=== PATIENT | male | born 1955 | race Caucasian/White ===

== ENCOUNTER 2016-12-16 20:01 | Emergency (ER) | payer OTHER ==
[~2016-12-16] VITALS: Ht 170.2 cm; Wt 73.0 kg
[~2016-12-16 20:01] MED LIST: ACET500C5 PO; ASPI325T4 PO; CETI10CA PO; GUAI120S26 PO; INSU100V23 SC; ISM20 PO; NPH,100V10 SC
[2016-12-16 20:07] VITALS: Ht 170.2 cm; Wt 73.0 kg
[2016-12-16 22:23] LABS: URINE BLOOD (Dip) POC Negative (NEGATIVE)
[2016-12-16] MEDS ORDERED: ONDANSETRON 4 MG INJ IV STA (22:31)
[2016-12-16] MEDS ORDERED: SOD CHLORIDE 0.9% 1,000 ML IV STA (22:31)
[2016-12-16] MEDS ORDERED: morphine 4 MG/ML VIAL IV STA (22:31)
[2016-12-16 22:58] LABS: ADD SCAN DIFF NO
[2016-12-16 22:59] LABS: BASOPHIL # 0.1 10^3/ul (0.0-0.1); BASOPHILS % 0.7 % (0.0-2.0); EOSINOPHILS # 0.5 10^3/ul (0.0-0.5); EOSINOPHILS % 6.5 % (0.0-7.0); HEMATOCRIT 33.7 % (42.0-52.0); HEMOGLOBIN 11.4 g/dl (14.0-18.0); LYMPHOCYTES # 2.3 10^3/ul (0.8-2.9); LYMPHOCYTES % 29.3 % (15.0-51.0); MEAN CORPUSCULAR HEMOGLOBIN 30.7 pg (29.0-33.0); MEAN CORPUSCULAR HGB CONC 33.8 g/dl (32.0-37.0); MEAN CORPUSCULAR VOLUME 90.8 fl (82.0-101.0); MEAN PLATELET VOLUME 10.3 fl (7.4-10.4); MONOCYTES % 12.6 % (0.0-11.0); NEUTROPHIL # 3.9 10^3/ul (1.6-7.5); NEUTROPHILS % 50.6 % (39.0-77.0); PLATELET COUNT 217 10^3/UL (140-415); RED BLOOD COUNT 3.71 10^6/ul (4.70-6.10); RED CELL DISTRIBUTION WIDTH 12.7 % (11.5-14.5); WHITE BLOOD COUNT 7.7 10^3/ul (4.8-10.8)
[2016-12-16 23:08] LABS: ALANINE AMINOTRANSFERASE 43 IU/L (13-69); ALBUMIN 4.5 g/dl (3.3-4.9); ALKALINE PHOSPHATASE 85 IU/L (42-121); ANION GAP 12 (8-16); ASPARTATE AMINO TRANSFERASE 34 IU/L (15-46); BILIRUBIN,INDIRECT 0.1 mg/dl (0-1.1); BILIRUBIN,TOTAL 0.1 mg/dl (0.2-1.3); BLOOD UREA NITROGEN 22 mg/dl (7-20); CALCIUM 8.6 mg/dl (8.4-10.2); CARBON DIOXIDE 27 mmol/L (21-31); CHLORIDE 104 mmol/L (97-110); CREATININE 0.86 mg/dl (0.61-1.24); GLUCOSE 153 mg/dl (70-220); POTASSIUM 4.4 mmol/L (3.5-5.1); SODIUM 139 mmol/L (135-144)
--- NOTE | 2016-12-16 23:10 | RADRPT ---
PROCEDURE: CHEST - 1 VIEW CLINICAL INDICATION: 61-year-old male with chest/abdominal pain. TECHNIQUE: A single frontal AP upright portable view of the chest was performed. The images were reviewed on a PACS workstation. COMPARISON: Chest x-ray January 04, 2016. FINDINGS: The patient has had a prior median sternotomy. The cardiomediastinal silhouette is enlarged but wit hout significant interval change. There is a shallow inspiration. There is bibasilar subsegmental atelectasis. There is no evidence for focal consolidation. There is no evidence for congestive hea rt failure. There is no evidence for pneumothorax. IMPRESSION: 1. Status post median sternotomy. 2. Cardiomegaly. 3. Shallow inspiration. 4. Bilateral lower lung zone subsegmental atelectasis. .Brandon Washington MD, MD Date Time Electronically viewed and signed by .Brandon Washington MD, on 12/16/2016 23:10 .M/
[2016-12-16 23:22] LABS: TROPONIN-I < 0.012 ng/ml (0.00-0.12)
--- NOTE | 2016-12-16 23:37 | RADRPT ---
PROCEDURE: CT Abdomen and Pelvis without contrast. CLINICAL INDICATION: Epigastric pain. TECHNIQUE: CT scan of the abdomen and pelvis without contrast was performed on a multidetector hig h-resolution CT scanner. The patient was scanned without intravenous contrast. Coronal and sagittal reformatted images were obtained from the axial source images. Images were reviewed on a high-resol [employer] PACS workstation. The total exam CTDI equals 10.32 mGy and the total exam DLP equals 547.03 mG y-cm. One or more the following dose reduction techniques were utilized: Automated exposure control, adjus tment of the mA and / or kV according to patient's size, or use of iterative reconstruction techniqu e. COMPARISON: None. FINDINGS: Cylindrical bronchiectasis in the right middle lobe, bilateral lower lobes and lingula. Linear atel ectasis/fibrosis at lung bases. Mild dependent atelectasis in posterior lungs. Nonspecific approxi mate 5 mm nodular density in right middle lung lobe. Sternal wires. Small calcified granuloma in th e right lower lung lobe. Calcified lymph node in right hilum consistent with old granulomatous disea se. Coronary artery calcification. Calcification in thoracoabdominal aorta, right renal and bilate ral iliac arteries. No abdominal aortic aneurysm is seen. Nonspecific perinephric soft tissue stra nding bilaterally. No abnormality of the right kidney is seen. There is minimal left hydronephrosi s. No renal or ureteral stone is seen. No abnormality is seen in the liver, gallbladder, spleen, p ancreas or adrenals. No biliary dilatation is seen. No definite abnormality of the stomach is seen . There is appearance of minimal diffuse bladder wall thickening which may at least partially be due to underdistension. The prostate does not appear to be enlarged. Stool in much of the colon. There is an unremarkable appendix. No dilated small bowel loops are seen. No enlarged lymph nodes are seen in the abdomen or pelvis. No ascites is seen. No pneumoperitoneum is seen. Old fractures o f right inferior and superior pubic rami. Mild osteoarthrosis at hips. Degenerative changes at sac roiliac joints. Thoracolumbar spondylosis. Bilateral L5 spondylolysis with grade II L5 on S1 spond ylolisthesis. IMPRESSION: Cylindrical bronchiectasis in bilateral lower lungs noted above. Nonspecific 5 mm nodular density in right middle lung lobe. Atherosclerosis. Minimal left hydronephrosis. Stool in much of colon. Ple ase see above. RPTAT: HJES .Gerardo Harmon MD, Date Time Electronically viewed and signed by .Gerardo Harmon MD, on 12/16/2016 23:37 .S/
--- NOTE | 2016-12-17 00:08 | ERD ---
ER Documentation Chief Complaint Date/Time DATE: 12/17/16 TIME: 00:07 Chief Complaint abd pain x 1 day, n/v HPI This is a 61-year-old abdominal pain for 1 day. Has had mild nausea and one episode of vomiting which is nonbilious nonbloody. No fevers no chills. No other current complaints. Pain is colicky in nature moderate in intensity and nonlocalizing with no associated alleviating factors ROS All systems reviewed and are negative except as per history of present illness. Medications Home Meds Active Scripts Acetaminophen* (Tylophen*) 500 Mg Capsule, 1 CAP PO Q6H Y for PAIN AND OR ELEVATED TEMP, #20 CAP Prov:BENITO FRAZIER BASE PLY HAND 01/04/16 Cetirizine Hcl* (Zyrtec*) 10 Mg Capsule, 10 MG PO DAILY, #30 TAB.CHEW Prov:BENITO FRAZIER BASE PLY HAND 01/04/16 Iqztvnkwjda-V-Ryopyuannu Hb* (Guaifenesin* DM Syrup) 120 Ml Syrup, 10 ML PO Q4H Y for COUGH, #120 ML Prov:BENITO FRAZIER BASE PLY HAND 01/04/16 Reported Medications Aspirin* (Aspirin*) Unknown Strength Tablet, PO DAILY, TAB 01/04/16 Insulin Regular, Human* (Novolin R*) Unknown Strength Vial, SC SLIDING SCALE Q6 , VIAL 01/04/16 Nph, Human Insulin Isophane* (Novolin N*) Unknown Strength Vial, SC AC BREAKFAST , VIAL 01/04/16 Isosorbide Mononitrate* (Isosorbide Mononitrate*) Unknown Strength Tablet, PO DAILY, TAB 01/04/16 Allergies Allergies: Coded Allergies: No Known Allergy (Unverified , 01/04/16) PMhx/Soc History of Surgery: Yes (bypass x 2) Anesthesia Reaction: No Hx Neurological Disorder: No Hx Respiratory Disorders: No Hx Cardiac Disorders: Yes (HTN) Hx Psychiatric Problems: No Hx Miscellaneous Medical Probl: Yes (DM, high cholesterol) Hx Alcohol Use: No Hx Substance Use: No Hx Tobacco Use: No Smoking Status: Never smoker Physical Exam Vitals Vital Signs Date Time Temp Pulse Resp B/P Pulse Ox O2 Delivery O2 Flow Rate FiO2 12/16/16 20:07 97.3 65 18 155/69 97 Physical Exam Const: [] Head: Atraumatic Eyes: Normal Conjunctiva ENT: Normal External Ears, Nose and Mouth. Neck: Full range of motion..~ No meningismus. Resp: Clear to auscultation bilaterally Cardio: Regular rate and rhythm, no murmurs Abd: Soft, non tender, non distended. Normal bowel sounds Skin: No petechiae or rashes Back: No midline or flank tenderness Ext: No cyanosis, or edema Neur: Awake and alert Psych: Normal Mood and Affect Result Diagram: 12/16/16221912/16/162219 Results 24 hrs Laboratory Tests Test 12/16/16 22:20 12/16/16 22:26 12/16/16 22:45 White Blood Count 7.710^3/ul Red Blood Count 3.7110^6/ul Hemoglobin 11.4g/dl Hematocrit 33.7% Mean Corpuscular Volume 90.8fl Mean Corpuscular Hemoglobin 30.7pg Mean Corpuscular Hemoglobin Concent 33.8g/dl Red Cell Distribution Width 12.7% Platelet Count 52480^3/UL Mean Platelet Volume 10.3fl Neutrophils % 50.6% Lymphocytes % 29.3% Monocytes % 12.6% Eosinophils % 6.5% Basophils % 0.7% Nucleated Red Blood Cells % 0.0/100WBC Neutrophils # 3.910^3/ul Lymphocytes # 2.310^3/ul Monocytes # 1.010^3/ul Eosinophils # 0.510^3/ul Basophils # 0.110^3/ul Nucleated Red Blood Cells # 0.010^3/ul Sodium Level 139mmol/L Potassium Level 4.4mmol/L Chloride Level 104mmol/L Carbon Dioxide Level 27mmol/L Anion Gap 12 Blood Urea Nitrogen 22mg/dl Creatinine 0.86mg/dl Glucose Level 153mg/dl Calcium Level 8.6mg/dl Total Bilirubin 0.1mg/dl Direct Bilirubin 0.00mg/dl Indirect Bilirubin 0.1mg/dl Aspartate Amino Transf (AST/SGOT) 34IU/L Alanine Aminotransferase (ALT/SGPT) 43IU/L Alkaline Phosphatase 85IU/L Troponin I < 0.012ng/ml Total Protein 7.0g/dl Albumin 4.5g/dl Globulin 2.50g/dl Albumin/Globulin Ratio 1.80 Lipase 92U/L Bedside Urine pH (LAB) 5.5 Bedside Urine Protein (LAB) Negative Bedside Urine Glucose (UA) Negative Bedside Urine Ketones (LAB) Negative Bedside Urine Blood Negative Bedside Urine Nitrite (LAB) Negative Bedside Urine Leukocyte Esterase (L Negative Lactic Acid Level 0.6mmol/L Current Medications Medications (Trade) Dose Ordered Sig/Barney Route PRN Reason Start Time Stop Time Status Last Admin Dose Admin Sodium Chloride (NS) 1,000 ml @ 1,000 mls/hr Q1H STAT IV 12/16/16 22:31 12/16/16 23:30 DC 12/16/16 22:44 Morphine Sulfate (morphine) 4 mg ONCE STAT IV 12/16/16 22:31 12/16/16 22:32 DC Ondansetron HCl (Zofran Inj) 4 mg ONCE STAT IV 12/16/16 22:31 12/16/16 22:32 DC 12/16/16 22:44 Procedures/MDM Medical decision-making: General abdominal pain. Evidence of constipation. Exam is benign. Patient be discharged home with constipation medication. Follow-up in 8 hours for serial abdominal exams. Return sooner for worsening pain Departure Diagnosis: Primary Impression: Abdominal pain Abdominal location: generalized Qualified Code: R10.84 - Generalized abdominal pain Condition: Stable JAGDISH MONTES Dec 17, 2016 00:08
[2016-12-17] MEDS ORDERED: DOCU-144 PO (00:09)
[2016-12-17] MEDS ORDERED: ONDA4TAB14 PO (00:32)
== END 2016-12-17 00:39 | disposition home or self-care (01) ==
LOC: E/R 20:01
DX: R10.84 Generalized abdominal pain (principal); I10 Essential (primary) hypertension; E11.9 Type 2 diabetes mellitus without complications; R11.2 Nausea with vomiting, unspecified; Z79.4 Long term (current) use of insulin; Z79.82 Long term (current) use of aspirin
CPT/HCPCS: 36415; 71010; 74176; 80053; 81003; 83605; 83690; 84484; 85025; 93005; 96374; J2405; J7030; Z7502; J2270

== ENCOUNTER 2017-01-11 21:55 | Emergency (ER) | payer OTHER ==
[~2017-01-11] VITALS: Ht 167.6 cm; Wt 73.0 kg
[~2017-01-11 21:55] MED LIST changes: +DOCU-144 PO; +ONDA4TAB14 PO
[2017-01-11 21:57] VITALS: Ht 167.6 cm; Wt 73.0 kg
[2017-01-11] MEDS ORDERED: ONDANSETRON 4 MG INJ IV STA (23:02)
[2017-01-11] MEDS ORDERED: SOD CHLORIDE 0.9% 1,000 ML IV STA (23:02)
[2017-01-12 00:08] VITALS: RESP 20; TEMP 99.3
[2017-01-12 00:12] LABS: BASOPHILS % 0.1 % (0.0-2.0); EOSINOPHILS % 0.4 % (0.0-7.0); HEMATOCRIT 32.9 % (42.0-52.0); LYMPHOCYTES # 1.2 10^3/ul (0.8-2.9); LYMPHOCYTES % 14.1 % (15.0-51.0); MEAN CORPUSCULAR HEMOGLOBIN 30.5 pg (29.0-33.0); MEAN CORPUSCULAR HGB CONC 33.4 g/dl (32.0-37.0); MEAN CORPUSCULAR VOLUME 91.1 fl (82.0-101.0); MEAN PLATELET VOLUME 10.5 fl (7.4-10.4); MONOCYTE # 0.9 10^3/ul (0.3-0.9); MONOCYTES % 10.7 % (0.0-11.0); NEUTROPHIL # 6.2 10^3/ul (1.6-7.5); NEUTROPHILS % 74.3 % (39.0-77.0); PLATELET COUNT 194 10^3/UL (140-415); POSITIVE DIFF @See below; RED BLOOD COUNT 3.61 10^6/ul (4.70-6.10); RED CELL DISTRIBUTION WIDTH 12.5 % (11.5-14.5); WHITE BLOOD COUNT 8.3 10^3/ul (4.8-10.8)
[2017-01-12 00:21] LABS: ADD UMIC YES; UR ASCORBIC ACID NEGATIVE (NEGATIVE); UR BILIRUBIN (Dip) NEGATIVE (NEGATIVE); UR BLOOD (Dip) 1+ mg/dL (NEGATIVE); UR CLARITY CLEAR (CLEAR); UR COLOR YELLOW (YELLOW); UR GLUCOSE (Dip) NEGATIVE (NEGATIVE); UR KETONES (Dip) NEGATIVE (NEGATIVE); UR LEUKOCYTE ESTERASE (Dip) NEGATIVE Leu/ul (NEGATIVE); UR NITRITE (Dip) NEGATIVE (NEGATIVE); UR RBC 1 /HPF (0-5); UR SPECIFIC GRAVITY (Dip) 1.018 (1.003-1.030); UR TOTAL PROTEIN (Dip) NEGATIVE (NEGATIVE); UR UROBILINOGEN (Dip) NEGATIVE (NEGATIVE)
[2017-01-12 00:29] LABS: INR 1.22; PROTIME 15.5 Sec (12.2-14.2); PT RATIO 1.2
[2017-01-12 00:31] LABS: ALANINE AMINOTRANSFERASE 43 IU/L (13-69); ALBUMIN 3.7 g/dl (3.3-4.9); ALBUMIN/GLOBULIN RATIO 1.15; ALKALINE PHOSPHATASE 85 IU/L (42-121); ANION GAP 17 (8-16); ASPARTATE AMINO TRANSFERASE 30 IU/L (15-46); BILIRUBIN,INDIRECT 0.5 mg/dl (0-1.1); BILIRUBIN,TOTAL 0.5 mg/dl (0.2-1.3); BLOOD UREA NITROGEN 35 mg/dl (7-20); CARBON DIOXIDE 25 mmol/L (21-31); CHLORIDE 99 mmol/L (97-110); CREATININE 0.96 mg/dl (0.61-1.24); GLUCOSE 177 mg/dl (70-220); POTASSIUM 4.1 mmol/L (3.5-5.1); SODIUM 137 mmol/L (135-144); TOTAL PROTEIN 6.9 g/dl (6.1-8.1)
--- NOTE | 2017-01-12 00:45 | RADRPT ---
PROCEDURE: XR Chest. CLINICAL INDICATION: Chest pain. TECHNIQUE: Portable AP upright view of the chest was obtained. COMPARISON: 12/16/2016 FINDINGS: The cardiomediastinal silhouette is mildly enlarged. Basilar bronchiectasis and mild fibrotic stein es are similar without evidence of acute infiltrate. There is no evidence for pleural effusion, pne umothorax or pulmonary vascular congestion. Sternotomy wires are again noted without evidence of ac chrissy osseous abnormality. Calcification is visible within the aorta RPTAT:HJJR IMPRESSION: 1. Post thoracotomy changes and mild cardiac silhouette enlargement without evidence of acute intrat horacic pathology. 2. Stable bibasilar bronchiectasis and fibrosis compared to the prior study. 3. Aortic atherosclerosis is present. Physician Harriet Date Time Electronically viewed and signed by Physician Harriet on 01/12/2017 00:45 JR/
[2017-01-12 00:48] LABS: TROPONIN-I < 0.012 ng/ml (0.00-0.12)
[2017-01-12 01:09] VITALS: BP 103/70; PULSE 66
[2017-01-12] MEDS ORDERED: ONDA4TAB14 PO (01:16)
[2017-01-12] MEDS ORDERED: LOPE2CAP PO (01:16)
--- NOTE | 2017-01-12 01:24 | ERD ---
ER Documentation Chief Complaint Date/Time DATE: 01/12/17 TIME: 01:17 Chief Complaint weakness, dizziness since yesterday HPI 61-year-old male with a history of hypertension, diabetes, coronary artery disease status post CABG presenting to the ER with complaints of nausea, vomiting, and diarrhea since yesterday morning. He has had watery diarrhea, about 10 episodes. Vomit is nonbloody, nonbilious, about 4 times. He does not have any significant associated abdominal pain, fever, chills, dysuria, hematuria, neck pain, or stiffness. Currently he denies any nausea or abdominal pain. His sister was worried because he felt very weak so she brought him in for evaluation. He has no chest pain or shortness of breath. ROS All systems reviewed and are negative except as per history of present illness. Medications Home Meds Active Scripts Loperamide Hcl* (Imodium*) 2 Mg Capsule, 2 MG PO .AFTER EA LOOSE BM Y for DIARRHEA, #10 TAB Prov:ELISABET SAUCEDA MD 01/12/17 Ondansetron (Ondansetron Odt) 4 Mg Tab.rapdis, 4 MG PO Q6H Y for NAUSEA AND/OR VOMITING, #10 TAB Prov:ELISABET SAUCEDA MD 01/12/17 Ondansetron (Ondansetron Odt) 4 Mg Tab.rapdis, 4 MG PO Q6H Y for NAUSEA AND/OR VOMITING, #10 TAB Prov:JAGDISH MONTES 12/17/16 Docusate Sodium* (Colace*) 100 Mg Capsule, 100 MG PO TID, #30 CAP Prov:JAGDISH MONTES 12/17/16 Acetaminophen* (Tylophen*) 500 Mg Capsule, 1 CAP PO Q6H Y for PAIN AND OR ELEVATED TEMP, #20 CAP Prov:BENITO FRAZIER NP 01/04/16 Cetirizine Hcl* (Zyrtec*) 10 Mg Capsule, 10 MG PO DAILY, #30 TAB.CHEW Prov:BENITO FRAZIER NP 01/04/16 Iypbigchynw-D-Fhqmxnpzkn Hb* (Guaifenesin* DM Syrup) 120 Ml Syrup, 10 ML PO Q4H Y for COUGH, #120 ML Prov:BENITO FRAZIER NP 01/04/16 Reported Medications Aspirin* (Aspirin*) Unknown Strength Tablet, PO DAILY, TAB 01/04/16 Insulin Regular, Human* (Novolin R*) Unknown Strength Vial, SC SLIDING SCALE Q6 , VIAL 01/04/16 Nph, Human Insulin Isophane* (Novolin N*) Unknown Strength Vial, SC AC BREAKFAST , VIAL 01/04/16 Isosorbide Mononitrate* (Isosorbide Mononitrate*) Unknown Strength Tablet, PO DAILY, TAB 01/04/16 Allergies Allergies: Coded Allergies: No Known Allergy (Unverified , 01/04/16) PMhx/Soc History of Surgery: Yes (bypass x 2) Anesthesia Reaction: No Hx Neurological Disorder: No Hx Respiratory Disorders: No Hx Cardiac Disorders: Yes (HTN) Hx Psychiatric Problems: No Hx Miscellaneous Medical Probl: Yes (DM, high cholesterol) Hx Alcohol Use: No Hx Substance Use: No Hx Tobacco Use: No Smoking Status: Never smoker FmHx Family History: No diabetes Physical Exam Vitals Vital Signs Date Time Temp Pulse Resp B/P Pulse Ox O2 Delivery O2 Flow Rate FiO2 01/12/17 01:09 66 103/70 100 Room Air 01/12/17 00:08 99.3 77 20 105/55 100 Room Air 01/11/17 21:57 100.8 88 20 116/58 100 Physical Exam Const: Well-appearing, no apparent distress Head: Atraumatic Eyes: Normal Conjunctiva ENT: Normal External Ears, Nose and Mouth. Neck: Full range of motion..~ No meningismus. Resp: Clear to auscultation bilaterally Cardio: Regular rate and rhythm, no murmurs Abd: Soft, non tender, non distended. Normal bowel sounds Skin: No petechiae or rashes Back: No midline or flank tenderness Ext: No cyanosis, or edema Neur: Awake and alert Psych: Normal Mood and Affect Result Diagram: 01/11/17234401/11/175 Results 24 hrs Laboratory Tests Test 01/11/17 23:45 01/11/17 23:59 White Blood Count 8.310^3/ul Red Blood Count 3.6110^6/ul Hemoglobin 11.0g/dl Hematocrit 32.9% Mean Corpuscular Volume 91.1fl Mean Corpuscular Hemoglobin 30.5pg Mean Corpuscular Hemoglobin Concent 33.4g/dl Red Cell Distribution Width 12.5% Platelet Count 64810^3/UL Mean Platelet Volume 10.5fl Neutrophils % 74.3% Lymphocytes % 14.1% Monocytes % 10.7% Eosinophils % 0.4% Basophils % 0.1% Nucleated Red Blood Cells % 0.0/100WBC Neutrophils # 6.210^3/ul Lymphocytes # 1.210^3/ul Monocytes # 0.910^3/ul Eosinophils # 0.010^3/ul Basophils # 0.010^3/ul Nucleated Red Blood Cells # 0.010^3/ul Prothrombin Time 15.5Sec Prothrombin Time Ratio 1.2 INR International Normalized Ratio 1.22 Activated Partial Thromboplast Time 31.0Sec Sodium Level 137mmol/L Potassium Level 4.1mmol/L Chloride Level 99mmol/L Carbon Dioxide Level 25mmol/L Anion Gap 17 Blood Urea Nitrogen 35mg/dl Creatinine 0.96mg/dl Glucose Level 177mg/dl Calcium Level 8.0mg/dl Total Bilirubin 0.5mg/dl Direct Bilirubin 0.00mg/dl Indirect Bilirubin 0.5mg/dl Aspartate Amino Transf (AST/SGOT) 30IU/L Alanine Aminotransferase (ALT/SGPT) 43IU/L Alkaline Phosphatase 85IU/L Troponin I < 0.012ng/ml Total Protein 6.9g/dl Albumin 3.7g/dl Globulin 3.20g/dl Albumin/Globulin Ratio 1.15 Lipase 87U/L Urine Color YELLOW Urine Clarity CLEAR Urine pH 5.0 Urine Specific [place] 1.018 Urine Ketones NEGATIVEmg/dL Urine Nitrite NEGATIVEmg/dL Urine Bilirubin NEGATIVEmg/dL Urine Urobilinogen NEGATIVEmg/dL Urine Leukocyte Esterase NEGATIVELeu/ul Urine Microscopic RBC 1/HPF Urine Microscopic WBC 0/HPF Urine Hemoglobin 1+mg/dL Urine Glucose NEGATIVEmg/dL Urine Total Protein NEGATIVEmg/dl Current Medications Medications (Trade) Dose Ordered Sig/Barney Route PRN Reason Start Time Stop Time Status Last Admin Dose Admin Sodium Chloride (NS) 1,000 ml @ 1,000 mls/hr Q1H STAT IV 01/11/17 23:02 01/12/17 00:01 DC 01/12/17 00:05 Ondansetron HCl (Zofran Inj) 4 mg ONCE STAT IV 01/11/17 23:02 01/11/17 23:04 DC 01/12/17 00:05 Procedures/MDM Labs CBC: no anemia or evidence of infection CMP: Mildly elevated BUN Lipase: no evidence of pancreatitis Troponin within normal limits UA: no evidence of infection EKG: Rate/Rhythm: Normal Sinus Rhythm QRS, ST, T-waves: Nonspecific T-wave abnormality lateral leads, no changes consistent w/ acute ischemia Impression: No evidence of ischemia or arrhythmia Chest x-ray shows no acute abnormalities MDM Patient is presenting with nausea and vomiting with a low-grade fever. He is otherwise well-appearing and hemodynamically stable. I have a low suspicion for serious bacterial infection, including meningitis, or acute surgical abdomen. I do not suspect acute cardiac etiology, acute intracranial hemorrhage or any increased intracranial pressure. Labs were notable for mildly elevated BUN, likely secondary to dehydration. 1 L of IV fluids were given. Upon reevaluation, the patient remained stable, well appearing, without any complaints. I believe the patient is stable for discharge at this time. I suspect the cause of his symptoms is likely viral in etiology. Prescription for Zofran and Imodium were given. Return precautions were discussed. Patient was discharged in a stable condition. Departure Diagnosis: Primary Impression: Nausea vomiting and diarrhea Condition: Stable Patient Instructions: Gastroenteritis, Viral (6Y-Adult), Vomiting And Diarrhea , Nonspecific (Adult) Additional Instructions: Return to the ER for any worsening symptoms. Make an appointment with your primary care doctor in 2 days for a follow-up visit. ELISABET SAUCEDA MD Jan 12, 2017 01:24
== END 2017-01-12 01:26 | disposition home or self-care (01) ==
LOC: E/R 21:55
DX: R11.2 Nausea with vomiting, unspecified (principal); R19.7 Diarrhea, unspecified; E11.9 Type 2 diabetes mellitus without complications; I10 Essential (primary) hypertension; I25.10 Atherosclerotic heart disease of native coronary artery without angina pectoris; Z79.4 Long term (current) use of insulin; Z79.82 Long term (current) use of aspirin; Z98.61 Coronary angioplasty status
CPT/HCPCS: 36415; 71010; 80053; 81001; 83690; 84484; 85025; 85610; 85730; 93005; 96374; J2405; J7030; Z7502